=== PATIENT | male | born 1980 | race Caucasian/White ===

== ENCOUNTER 2017-02-20 09:15 | Outpatient (CLI) | payer OTHER ==
--- NOTE | 2017-02-20 22:12 | MRI Report ---
EXAM: MRI LUMBAR SPINE WITHOUT CONTRAST EXAM DATE: 02/20/2017 09:48 AM. CLINICAL HISTORY: Chronic back pain with radicular symptoms. COMPARISON: None. TECHNIQUE: Multiplanar, multisequence T1-weighted and fluid-sensitive sequences of the lumbar spine f rom T12 to S1 without contrast. Other: None. FINDINGS: There is straightening of the normal lumbar lordosis. There is a mild to moderate decrease in the hei ght of the disk with desiccation at L4-L5 and L5-S1. The conus terminates at the superior endplate le asher of L1 and is normal. 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 The conus terminates at the superior end plate level of L1. The abdominal aorta is of normal caliber. There is a Schmorl's node in the inferior endplate of L4. There are modic type I and type II endplate degenerative changes within the L4-L5 and L5-S1 endplates . There is no significant atrophy of the paraspinal musculature or psoas musculature. L2-L3: There is no significant disk bulge, central or foraminal stenosis. The facets are normal. L3-L4: There is a small disk osteophyte complex abutting the sac producing a minimal central canal st enosis. The facets are normal. There is [id number] bilateral neural foraminal narrowing. L4-L5: There is a broad-based disk osteophyte complex with a superimposed right paracentral protrusio n in the disk extending into the right lateral recess producing contact and slight displacement of th e traversing right L5 nerve root. Recommend correlation for any right L5 radicular symptoms. There is a mild central canal stenosis. The facets are normal. There is no significant foraminal stenosis. L5-S1: There is a small disk osteophyte complex with annular tear abutting the sac producing a minima l central canal stenosis. The facets are normal. There is mild narrowing of the neural foramina bilat erally. IMPRESSION: 1. There is a small disk osteophyte complex at L3-L4 producing a minimal central canal stenosis. 2. There is a broad-based disk osteophyte complex with superimposed right paracentral protrusion of t he disk at L4-L5 extending into the right lateral recess and contacting and displacing the traversing right L5 nerve. Recommend correlation for any right L5 radicular symptoms. There is a mild central c anal stenosis. 3. There is a small disk osteophyte complex at L5-S1 with annular tear producing a minimal central ca nal stenosis. Comment: The following findings are so common in adults without low back pain that while we report th eir presence, they must be interpreted with caution and in the context of the clinical situation. (Re jem Negrete et al, Spine 2001) Prevalence of findings in patients without low back pain: Disk degeneration (any evidence): 92% Disk desiccation/T2 signal loss: 83% Disk height loss: 56% Disk bulge: 64% Disk protrusion: 32% Annular tear/high intensity zone: 38% [facility] Referring Provider Line: [phone] SITE ID: [id number]
== END 2017-02-20 09:16 | disposition home or self-care (01) ==
LOC: DI 09:15
PROVIDERS: ATTEND Family Medicine
DX: M51.26 Other intervertebral disc displacement, lumbar region (principal); M51.37 Other intervertebral disc degeneration, lumbosacral region; M51.36 Other intervertebral disc degeneration, lumbar region
CPT/HCPCS: 72148